=== PATIENT | female | born 1950 | race Caucasian/White ===

== ENCOUNTER 2017-02-13 09:35 | Inpatient (IN) | payer OTHER ==
[~2017-02-13] VITALS: Ht 166.4 cm; Wt 94.8 kg
[2017-02-13 09:40] VITALS: BP 140/76; PULSE 96; RESP 16; TEMP 98.8; O2SAT 96
[2017-02-13] MEDS ORDERED: SODIUM CHLOR 0.9% 1000 ML INJ 1,000 ML IV SCH (09:59)
[2017-02-13] MEDS ORDERED: SODIUM CHLORIDE 0.9% FLUSH 10 ML FLUSH IV FLUSH PRN (10:00)
[2017-02-13 10:03] LABS: GLUCOSE,URINE NEG (NEG); KETONE, URINE NEG (NEG); NITRITE,URINE NEG (NEG)
--- NOTE | 2017-02-13 10:04 | PD ---
HPI Chief Complaint: Abdominal Pain Time Seen by Provider: 09:51 Travel History International Travel<30 days: No Contact w/Intl Traveler<30days: No Traveled to known affect area: No History of Present Illness HPI The patient is a 66-year-old female who presents emergency department for 5 days of intermittent abdominal cramping and pain is located right lower aspect of the abdomen. The pain came on gradually, has progressed over the last 5 days, is worse at night, and described as sharp and cramping. The pain is now localized to the right lower quadrant. She denies any nausea, vomiting, or diarrhea. She does complain of mild constipation, last bowel movement was yesterday, described as "hard". Previous abdominal surgeries include hysterectomy and cholecystectomy. She denies any dysuria, frequency, or urgency. She does complain of chills last night, however, did not have a thermometer to check her temperature. Symptoms are moderate, there are no known alleviating or exacerbating factors. PFSH Past Medical History Narrative Medical Hypertension, diverticulitis ?: Not Past Surgical History Narrative Surgical Hysterectomy, cholecystectomy Hysterectomy: Yes Social History Tobacco Use: No Allergies-Medications (Allergen,Severity, Reaction): Coded Allergies: Sulfa (Sulfonamide Antibiotics) (Verified Allergy, Intermediate, RASH, ) Reported Meds & Prescriptions Reported Meds & Active Scripts Active Reported Tramadol (Tramadol HCl) 50 Mg Tab 50 Mg PO Q6H PRN Zolpidem (Zolpidem Tartrate) 5 Mg Tab 5 Mg PO HS PRN Gabapentin 300 Mg Cap 300 Mg PO QID Prevacid (Lansoprazole) 30 Mg Capdr 30 Mg PO DAILY Hydrochlorothiazide 25 Mg Tab 25 Mg PO DAILY Amlodipine (Amlodipine Besylate) 5 Mg Tab 5 Mg PO DAILY Lisinopril 40 Mg Tab 40 Mg PO DAILY Review of Systems Except as stated in HPI: all other systems reviewed are Neg General / Constitutional: Positive: Chills, No: Fever Cardiovascular: No: Chest Pain or Discomfort Respiratory: No: Shortness of Breath Gastrointestinal: Positive: Abdominal Pain, Constipation, No: Nausea, Vomiting , Diarrhea Genitourinary: No: Dysuria Physical Exam Narrative GENERAL: Awake, alert, pleasant 66-year-old female who appears her stated age and is in no acute respiratory distress. SKIN: Focused skin assessment warm/dry. HEAD: Atraumatic. Normocephalic. EYES: Pupils equal and round. No scleral icterus. No injection or drainage. ENT: No nasal bleeding or discharge. Mucous membranes pink and moist. NECK: Trachea midline. No JVD. CARDIOVASCULAR: Regular rate and rhythm. No murmur appreciated. RESPIRATORY: No accessory muscle use. Clear to auscultation. Breath sounds equal bilaterally. GASTROINTESTINAL: Abdomen soft, tender palpation right lower quadrant. No guarding or rigidity. Rectal: No gross blood. No fecal impaction noted on digital examination. The exam was performed in the presence of a female nurse. MUSCULOSKELETAL: No obvious deformities. No clubbing. No cyanosis. No edema. NEUROLOGICAL: Awake and alert. No obvious cranial nerve deficits. Motor grossly within normal limits. Normal speech. PSYCHIATRIC: Appropriate mood and affect; insight and judgment normal. Data Data Last Documented VS Vital Signs Date Time Temp Pulse Resp B/P (MAP) Pulse Ox O2 Delivery O2 Flow Rate FiO2 02/13/17 10:52 96 02/13/17 09:40 98.8 96 16 140/76 (97) Orders Orders Urinalysis - C+S If Indicated (02/13/17 09:43) Complete Blood Count With Diff (02/13/17 09:59) Comprehensive Metabolic Panel (02/13/17 09:59) Lipase (02/13/17 09:59) Ct Abd/Pel W/O Iv Contrast (02/13/17 09:59) Iv Access Insert/Monitor (02/13/17 09:59) Ecg Monitoring (02/13/17 09:59) Oximetry (02/13/17 09:59) Sodium Chlor 0.9% 1000 Ml Inj (Ns 1000 M (02/13/17 09:59) Sodium Chloride 0.9% Flush (Ns Flush) (02/13/17 10:00) Ampicillin-Sulbactam Inj (Unasyn Inj) (02/13/17 11:30) Admit Order (Ed Use Only) (02/13/17 11:47) Labs Laboratory Tests Test 02/13/17 09:50 02/13/17 10:47 Urine Collection Type CLEAN CATCH Urine Color YELLOW Urine Turbidity CLEAR Urine pH 8.0 Urine Specific Ferdinand 1.010 Urine Protein NEG mg/dL Urine Glucose (UA) NEG mg/dL Urine Ketones NEG mg/dL Urine Occult Blood TRACE Urine Nitrite NEG Urine Bilirubin NEG Urine Leukocyte Esterase LARGE Urine RBC 0-3 /hpf Urine WBC 3-5 /hpf Urine Squamous Epithelial Cells 0-5 /hpf Microscopic Urinalysis Comment CULT NOT INDICATED White Blood Count 7.8 TH/MM3 Red Blood Count 3.80 MIL/MM3 Hemoglobin 12.1 GM/DL Hematocrit 35.0 % Mean Corpuscular Volume 92.1 FL Mean Corpuscular Hemoglobin 31.8 PG Mean Corpuscular Hemoglobin Concent 34.5 % Red Cell Distribution Width 12.0 % Platelet Count 256 TH/MM3 Mean Platelet Volume 7.8 FL Neutrophils (%) (Auto) 74.6 % Lymphocytes (%) (Auto) 17.7 % Monocytes (%) (Auto) 6.5 % Eosinophils (%) (Auto) 0.6 % Basophils (%) (Auto) 0.6 % Neutrophils # (Auto) 5.9 TH/MM3 Lymphocytes # (Auto) 1.4 TH/MM3 Monocytes # (Auto) 0.5 TH/MM3 Eosinophils # (Auto) 0.0 TH/MM3 Basophils # (Auto) 0.0 TH/MM3 CBC Comment DIFF FINAL Differential Comment Blood Urea Nitrogen 10 MG/DL Creatinine 0.53 MG/DL Random Glucose 91 MG/DL Total Protein 6.6 GM/DL Albumin 3.2 GM/DL Calcium Level 9.2 MG/DL Alkaline Phosphatase 143 U/L Aspartate Amino Transf (AST/SGOT) 83 U/L Alanine Aminotransferase (ALT/SGPT) 161 U/L Total Bilirubin 0.7 MG/DL Sodium Level 136 MEQ/L Potassium Level 3.9 MEQ/L Chloride Level 100 MEQ/L Carbon Dioxide Level 26.6 MEQ/L Anion Gap 9 MEQ/L Estimat Glomerular Filtration Rate 115 ML/MIN Lipase 92 U/L [facility] Medical Decision Making Medical Screen Exam Complete: Yes Emergency Medical Condition: Yes Medical Record Reviewed: Yes Interpretation(s) Last Impressions Abdomen/Pelvis CT 02/13/17 0959 Signed Impressions: Service Date/Time: Monday, February 13, 2017 10:21 - CONCLUSION: 1. Induration/Inflammatory change in the right lower quadrant with increased soft tissue density within the cecum, thickening of the appendix, and small lymph nodes. This could be from an inflammatory/infectious process involving the base of the appendix and cecum. A cecal neoplasm causing secondary to inflammatory change at the base of the appendix can also be considered. The induration /inflammatory change appears more centered around the cecum than the appendix itself. Appendicitis and inflammatory change are more common than cecal neoplasms. The distinction cannot be made on this CT examination. 2. Biliary duct dilatation likely reflecting a reservoir phenomenon following cholecystectomy. The gallbladder is absent. Vidal Patel MD Laboratory Tests Test 02/13/17 09:50 02/13/17 10:47 Urine Collection Type CLEAN CATCH Urine Color YELLOW Urine Turbidity CLEAR Urine pH 8.0 Urine Specific Ferdinand 1.010 Urine Protein NEG mg/dL Urine Glucose (UA) NEG mg/dL Urine Ketones NEG mg/dL Urine Occult Blood TRACE Urine Nitrite NEG Urine Bilirubin NEG Urine Leukocyte Esterase LARGE Urine RBC 0-3 /hpf Urine WBC 3-5 /hpf Urine Squamous Epithelial Cells 0-5 /hpf Microscopic Urinalysis Comment CULT NOT INDICATED White Blood Count 7.8 TH/MM3 Red Blood Count 3.80 MIL/MM3 Hemoglobin 12.1 GM/DL Hematocrit 35.0 % Mean Corpuscular Volume 92.1 FL Mean Corpuscular Hemoglobin 31.8 PG Mean Corpuscular Hemoglobin Concent 34.5 % Red Cell Distribution Width 12.0 % Platelet Count 256 TH/MM3 Mean Platelet Volume 7.8 FL Neutrophils (%) (Auto) 74.6 % Lymphocytes (%) (Auto) 17.7 % Monocytes (%) (Auto) 6.5 % Eosinophils (%) (Auto) 0.6 % Basophils (%) (Auto) 0.6 % Neutrophils # (Auto) 5.9 TH/MM3 Lymphocytes # (Auto) 1.4 TH/MM3 Monocytes # (Auto) 0.5 TH/MM3 Eosinophils # (Auto) 0.0 TH/MM3 Basophils # (Auto) 0.0 TH/MM3 CBC Comment DIFF FINAL Differential Comment Blood Urea Nitrogen 10 MG/DL Creatinine 0.53 MG/DL Random Glucose 91 MG/DL Total Protein 6.6 GM/DL Albumin 3.2 GM/DL Calcium Level 9.2 MG/DL Alkaline Phosphatase 143 U/L Aspartate Amino Transf (AST/SGOT) 83 U/L Alanine Aminotransferase (ALT/SGPT) 161 U/L Total Bilirubin 0.7 MG/DL Sodium Level 136 MEQ/L Potassium Level 3.9 MEQ/L Chloride Level 100 MEQ/L Carbon Dioxide Level 26.6 MEQ/L Anion Gap 9 MEQ/L Estimat Glomerular Filtration Rate 115 ML/MIN Lipase 92 U/L Differential Diagnosis Differential diagnosis includes constipation, diverticulitis, appendicitis, partial small bowel obstruction, pyelonephritis, nephrolithiasis. Narrative Course IV was established, labs are drawn and sent, and the patient was placed on cardiac telemetry monitoring and continuous pulse oximetry monitoring. The patient declined pain medication initially. UA was sent to lab. Noncontrast CT of the abdomen and pelvis was ordered. The patient was placed on maintenance IV fluids. Patient's white count is unremarkable, patient is afebrile, however, CT reveals induration inflammatory changes in the right lower quadrant with increased soft tissue density within the cecum and thickening of the appendix and small left nose which could be inflammatory infectious process such as appendicitis versus cecal mass. The patient states she had an endoscopy and colonoscopy in April 2016 which was unremarkable. I had a discussion with the on-call [facility] surgeon, Dr. Faulkner, who recommends IV antibiotics and admission to medical service. We're unsure if this is a inflammatory reaction from appendicitis since she's been having pain for last 4-5 days versus possible cecal mass. Therefore, I'll call was placed to the on-call [facility] physician for admission. Physician Communication Physician Communication I had a discussion with the on-call [facility] surgeon, Dr. Faulkner, who recommends admission to medicine. Therefore, call was placed to the on-call [facility] medical team for admission at [facility]. I discussed the patient with Dr. Allan Cross who agrees with admission. Diagnosis Primary Impression: Appendicitis Qualified Codes: K37 - Unspecified appendicitis Additional Impression: Cecum mass Admitting Information Admitting Physician Requests: Observation Condition: Stable Denis Deshpande MD Feb 13, 2017 10:04
[2017-02-13 10:05] LABS: BLOOD, URINE TRACE (NEG)
[2017-02-13 10:07] LABS: METHOD OF COLLECTION CLEAN CATCH; URINE COLOR YELLOW (YELLW/STRAW)
[2017-02-13 10:08] LABS: COMMENT (UR) CULT NOT INDICATED; CULTURE IF INDICATED CULT NOT INDICATED; RBC, URINE 0-3 /hpf (0-3); SQUAMOUS EPITHELIAL CELL URINE 0-5 /hpf (0-5)
[2017-02-13] MEDS ORDERED: LISI40TA PO (10:13)
[2017-02-13] MEDS ORDERED: ZOLP5TAB3 PO (10:13)
[2017-02-13] MEDS ORDERED: HYDR25TA5 PO (10:13)
[2017-02-13] MEDS ORDERED: GABA300C5 PO (10:13)
[2017-02-13] MEDS ORDERED: AMLO5TAB2 PO (10:13)
[2017-02-13] MEDS ORDERED: TRAM50TA PO (10:13)
[2017-02-13] MEDS ORDERED: PREV30CA11 PO (10:13)
--- NOTE | 2017-02-13 10:50 | RADRPT ---
EXAM DATE/TIME: 02/13/2017 10:21 [place] COMPARISON: No previous studies available for comparison. INDICATIONS : Abdominal pain. Constipation. ORAL CONTRAST: No oral contrast ingested. RADIATION DOSE: 25.17 CTDIvol (mGy) MEDICAL HISTORY : None SURGICAL HISTORY : Hysterectomy. ENCOUNTER: Initial ACUITY: 4 - 6 days PAIN SCALE: 5/10 LOCATION: Right lower quadrant TECHNIQUE: Volumetric scanning of the abdomen and pelvis was performed. Using automated exposure control and ad justment of the mA and/or kV according to patient size, radiation dose was kept as low as reasonably achievable to obtain optimal diagnostic quality images. DICOM format image data is available electro nically for review and comparison. FINDINGS: LOWER LUNGS: There is a calcified granuloma at the anterior right lung base. LIVER: Homogeneous density without lesion. There is no dilation of the biliary tree. The gallbladder is abs ent. There is dilatation the common bile that measuring 2 cm. This likely reflects a reservoir phenom enon following cholecystectomy. SPLEEN: Normal size without lesion. PANCREAS: Within normal limits. KIDNEYS: Normal in size and shape. There is no mass, stone, or hydronephrosis. ADRENAL GLANDS: Within normal limits. VASCULAR: There is no aortic aneurysm. BOWEL/MESENTERY: There is increased density seen in the cecum. There is surrounding inflammatory change. Small lymph n odes are seen posterior to the cecum. What appears to be a thickened appendix is seen extending poste riorly from the cecum. There is a small focus of air within the appendix. The terminal ileum appears mildly thickened but this is likely from collapse and nondistention. Significant inflammatory change around the terminal ileum itself is not clearly identified. The remaining aspects of the colon appear normal. ABDOMINAL WALL: Within normal limits. RETROPERITONEUM: There is no lymphadenopathy. BLADDER: No wall thickening or mass. REPRODUCTIVE: The patient is status post hysterectomy. A pelvic mass is not seen. INGUINAL: There is no lymphadenopathy or hernia. MUSCULOSKELETAL: There is degenerative change in the lumbar spine. CONCLUSION: 1. Induration/Inflammatory change in the right lower quadrant with increased soft tissue density with in the cecum, thickening of the appendix, and small lymph nodes. This could be from an inflammatory/i nfectious process involving the base of the appendix and cecum. A cecal neoplasm causing secondary to inflammatory change at the base of the appendix can also be considered. The induration /inflammatory change appears more centered around the cecum than the appendix itself. Appendicitis and inflammator y change are more common than cecal neoplasms. The distinction cannot be made on this CT examination. 2. Biliary duct dilatation likely reflecting a reservoir phenomenon following cholecystectomy. The ga llbladder is absent. Vidal Patel MD on February 13, 2017 at 10:37 Board Certified Radiologist. This report was verified electronically.
[2017-02-13 10:52] VITALS: O2SAT 96
[2017-02-13 11:01] LABS: AUTOMATED NEUTROPHIL # 5.9 TH/MM3 (1.8-7.7); BASOPHIL % 0.6 % (0.0-2.0); EOSINOPHIL % 0.6 % (0.0-4.0); HEMO FLAGS DIFF FINAL; LYMPH % 17.7 % (9.0-44.0); LYMPHOCYTE # 1.4 TH/MM3 (1.0-4.8); MEAN CELL VOLUME 92.1 FL (80.0-100.0); MEAN CORPUSCULAR HEMOGLOBIN 31.8 PG (27.0-34.0); MEAN CORPUSCULAR HGB CONC 34.5 % (32.0-36.0); MONO % 6.5 % (0.0-8.0); NEUT % 74.6 % (16.0-70.0); PLATELET COUNT 256 TH/MM3 (150-450); WHITE BLOOD COUNT 7.8 TH/MM3 (4.0-11.0)
[2017-02-13 11:07] LABS: CHLORIDE 100 MEQ/L (98-107); POTASSIUM 3.9 MEQ/L (3.5-5.1); SODIUM (NA) 136 MEQ/L (136-145)
[2017-02-13 11:13] LABS: ANION GAP 9 MEQ/L (5-15); BICARBONATE 26.6 MEQ/L (21.0-32.0); BLOOD UREA NITROGEN 10 MG/DL (7-18)
[2017-02-13 11:15] LABS: ALT (GPT) 161 U/L (10-53); AST (GOT) 83 U/L (15-37)
[2017-02-13 11:16] LABS: GLOMERULAR FILTRATION RATE 115 ML/MIN (>89)
[2017-02-13 11:17] LABS: TOTAL BILIRUBIN ADULT 0.7 MG/DL (0.2-1.0)
[2017-02-13 11:18] LABS: ALKALINE PHOSPHATASE 143 U/L (45-117)
[2017-02-13] MEDS ORDERED: AMPICILLIN-SULBACTAM INJ 3 GM in SODIUM CHLORIDE 0.9% INJ 100 ML IV ONE (11:30)
[2017-02-13 11:56] VITALS: BP 138/71; PULSE 90; RESP 16; O2SAT 93
--- NOTE | 2017-02-13 14:27 | PD.CONS ---
HPI Service General Surgery Consult Requested By Dr. Deshpande Reason for Consult Inflammation cecum/appendix Primary Care Physician Zaida Cerrato MD History of Present Illness The patient is a 66-year-old female presenting with abdominal pain 5 days in the right lower quadrant. He's had no nausea or vomiting and has tolerated diet. She had some mild constipation. The pain was somewhat mild and she's been able to go to work, however, last night it became more severe and she also had chills. Therefore she presented to the emergency department. She does have a history of clinically diagnosed mild diverticulitis. She was noted to have fairly normal labs and a CT scan of the abdomen and pelvis revealed inflammation of the cecum and dilation of the appendix with some surrounding inflammatory changes. I reviewed the images and discussed the images with Dr. Alvares of radiology. Based on imaging, it is unclear whether this is inflammation of the cecum or appendix or cecal mass. Review of Systems Constitutional: COMPLAINS OF: Chills, DENIES: Fever Eyes: DENIES: Eye inflammation, Eye pain Respiratory: DENIES: Cough, Wheezing Cardiovascular: DENIES: Chest pain, Palpitations Gastrointestinal: COMPLAINS OF: Abdominal pain, DENIES: Nausea, Vomiting Musculoskeletal: DENIES: Muscle aches, Stiffness Integumentary: DENIES: Pruritus, Rash Neurologic: DENIES: Localized weakness, Seizures Past Family Social History Past Medical History Hypertension Diverticulitis Past Surgical History Hysterectomy Cholecystectomy Reported Medications Reported Meds & Active Scripts Active Reported Tramadol (Tramadol HCl) 50 Mg Tab 50 Mg PO Q6H PRN Zolpidem (Zolpidem Tartrate) 5 Mg Tab 5 Mg PO HS PRN Gabapentin 300 Mg Cap 300 Mg PO QID Prevacid (Lansoprazole) 30 Mg Capdr 30 Mg PO DAILY Hydrochlorothiazide 25 Mg Tab 25 Mg PO DAILY Amlodipine (Amlodipine Besylate) 5 Mg Tab 5 Mg PO DAILY Lisinopril 40 Mg Tab 40 Mg PO DAILY Allergies: Coded Allergies: Sulfa (Sulfonamide Antibiotics) (Verified Allergy, Intermediate, RASH, ) Active Ordered Medications Current Medications Medications (Trade) Dose Ordered Sig/Quintin Route Start Time Stop Time Status Last Admin Sodium Chloride 1,000 ml @ 125 mls/hr Q8H IV 02/13/17 09:59 02/13/17 17:58 02/13/17 10:49 (NS Flush) 2 ml UNSCH PRN IV FLUSH 02/13/17 10:00 Family History Noncontributory Social History No alcohol tobacco or drug use. is present with her. Physical Exam Vital Signs Vital Signs Date Time Temp Pulse Resp B/P (MAP) Pulse Ox O2 Delivery O2 Flow Rate FiO2 02/13/17 11:56 90 16 138/71 (93) 93 02/13/17 10:52 96 02/13/17 09:40 98.8 96 16 140/76 (97) 96 Physical Exam GENERAL: Awake and alert. No acute distress. Cooperative. Obese. HEAD: Normocephalic. Atraumatic. EYES: Pupils equal round and reactive to light bilaterally. No scleral icterus. ENT: Moist oral mucosa. NECK: Trachea midline. CHEST: Lungs clear to auscultation bilaterally with no wheezing or rhonchi. No respiratory distress. CARDIOVASCULAR: Regular rate and rhythm. ABDOMEN: Well-healed right upper paramedian incision and lower midline incisions. Moderate tenderness to palpation in the right lower quadrant. Otherwise soft and nontender with no distention. EXTREMITIES: No cyanosis or edema. SKIN: Warm, dry, nonjaundiced. Laboratory Laboratory Tests Test 02/13/17 09:50 02/13/17 10:47 Urine Collection Type CLEAN CATCH Urine Color YELLOW Urine Turbidity CLEAR Urine pH 8.0 Urine Specific Erwin 1.010 Urine Protein NEG Urine Glucose (UA) NEG Urine Ketones NEG Urine Occult Blood TRACE Urine Nitrite NEG Urine Bilirubin NEG Urine Leukocyte Esterase LARGE Urine RBC 0-3 Urine WBC 3-5 Urine Squamous Epithelial Cells 0-5 Microscopic Urinalysis Comment CULT NOT INDICATED White Blood Count 7.8 Red Blood Count 3.80 Hemoglobin 12.1 Hematocrit 35.0 Mean Corpuscular Volume 92.1 Mean Corpuscular Hemoglobin 31.8 Mean Corpuscular Hemoglobin Concent 34.5 Red Cell Distribution Width 12.0 Platelet Count 256 Mean Platelet Volume 7.8 Neutrophils (%) (Auto) 74.6 Lymphocytes (%) (Auto) 17.7 Monocytes (%) (Auto) 6.5 Eosinophils (%) (Auto) 0.6 Basophils (%) (Auto) 0.6 Neutrophils # (Auto) 5.9 Lymphocytes # (Auto) 1.4 Monocytes # (Auto) 0.5 Eosinophils # (Auto) 0.0 Basophils # (Auto) 0.0 CBC Comment DIFF FINAL Differential Comment Blood Urea Nitrogen 10 Creatinine 0.53 Random Glucose 91 Total Protein 6.6 Albumin 3.2 Calcium Level 9.2 Alkaline Phosphatase 143 Aspartate Amino Transf (AST/SGOT) 83 Alanine Aminotransferase (ALT/SGPT) 161 Total Bilirubin 0.7 Sodium Level 136 Potassium Level 3.9 Chloride Level 100 Carbon Dioxide Level 26.6 Anion Gap 9 Estimat Glomerular Filtration Rate 115 Lipase 92 Result Diagram: 02/13/17 1047 02/13/17 1047 Imaging Last Impressions Abdomen/Pelvis CT 02/13/17 0959 Signed Impressions: Service Date/Time: Wednesday, February 13, 2017 10:21 - CONCLUSION: 1. Induration/Inflammatory change in the right lower quadrant with increased soft tissue density within the cecum, thickening of the appendix, and small lymph nodes. This could be from an inflammatory/infectious process involving the base of the appendix and cecum. A cecal neoplasm causing secondary to inflammatory change at the base of the appendix can also be considered. The induration /inflammatory change appears more centered around the cecum than the appendix itself. Appendicitis and inflammatory change are more common than cecal neoplasms. The distinction cannot be made on this CT examination. 2. Biliary duct dilatation likely reflecting a reservoir phenomenon following cholecystectomy. The gallbladder is absent. Vidal Patel MD Assessment and Plan Assessment and Plan 66-year-old female with right lower quadrant pain and tenderness with normal white blood count and CT abdomen and pelvis concerning for cecal inflammation versus appendicitis versus cecal mass. She did have a colonoscopy by Dr. Robb in April of last year which was reportedly normal. Due to the unclear nature of this process and its prolonged duration as well as a normal white blood count I do not recommend operative intervention at this time as she may require an unnecessary right hemicolectomy. I would recommend IV antibiotics for a couple of days followed by outpatient oral antibiotics as long as she continues to improve. She would likely benefit from a colonoscopy in a few weeks and based on the results we can consider operative intervention if required or interval appendectomy. I discussed this in detail with the patient and she understands. Discussed Condition With Dr. Charlee Faulkner,David QUINTANILLA Feb 13, 2017 14:27
[2017-02-13 15:03] VITALS: BP 120/63; PULSE 92; RESP 18; TEMP 98.6
[2017-02-13 15:59] VITALS: BP 159/80; PULSE 89; RESP 16; O2SAT 95
[2017-02-13] MEDS ORDERED: NALOXONE HCL 0.4 MG/ML AMP IV PUSH PRN (16:15)
[2017-02-13] MEDS ORDERED: ONDANSETRON HCL 4 MG/2 ML VIAL IVP PRN (16:15)
[2017-02-13] MEDS ORDERED: traMADol HCL 50 MG TAB PO PRN (16:15)
[2017-02-13] MEDS: SODIUM CHLOR 0.9% 1000 ML INJ 1,000 ML IV SCH ×2 (16:15→21:13)
[2017-02-13] MEDS ORDERED: ACETAMINOPHEN 325 MG TAB PO PRN (16:15)
[2017-02-13] MEDS ORDERED: LEVOFLOXACIN 750 MG PREMIX INJ 150 ML IV SCH (17:00)
--- NOTE | 2017-02-13 17:14 | MH ---
cc: SHAHANA PANDEY M.D. DATE OF ADMISSION 02/13/2017 ADMISSION DIAGNOSIS Right lower quadrant abdominal pain, appendicitis, cecal mass. HISTORY OF PRESENT ILLNESS The patient is a very pleasant 66-year-old female who presented to the emergency room after a 5-day history of right lower quadrant pain. She states that she and her evacuated because of [place] and on the trip back while in the vehicle she started experiencing some right lower quadrant discomfort. She states this continued throughout the week, getting progressively worse until last night she was bent over in pain and also was having episodes of chills. She has no thermometer at home so was unable to take her temperature. She states throughout the week she has noticed that the pain usually intensifies worse in the evening. She has not had a change in appetite, nausea or vomiting. She has decreased her fluid intake a little bit as she thought this may make the pain worse. She did have half a turkey sandwich yesterday afternoon. She does not say that she has had a significant change in her bowel pattern. Apparently, yesterday her stools were darker and harder but she attributes any changes in her bowels to the stress of the last week. She did have a colonoscopy and endoscopy by Dr. Robb in 2016 towards the end of the year and this was normal. I was able to look at the report and it looks like there was good visualization of the appendiceal orifice and cecum at the time. She states up until this episode this week she feels that she has been in very good health and has had no other constitutional symptoms. PAST MEDICAL HISTORY Significant for hypertension, restless legs syndrome. She does have significant osteoarthritis of her knees and some insomnia. PAST SURGICAL HISTORY Includes cholecystectomy, hysterectomy, carpal tunnel surgery. She also says that she had a tubaloplasty. Apparently, at one point she had what she states was an infected mass in her uterus which is what led to the hysterectomy and she was told she had a significant amount of adhesions in that area. ALLERGIES ALLERGIES TO SULFA. MEDICATIONS Current medications at home include: 1. Lisinopril 40 milligrams daily. 2. Amlodipine 5 milligrams daily. 3. Ambien 5 milligrams at bedtime. 4. She takes tramadol 50 milligrams. She can take it up to every 6 hours but she takes it less. She takes that for her restless legs. 5. Gabapentin. HABITS She does not smoke. She denies any recent alcohol consumption habits. She is currently . 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 REVIEW OF SYSTEMS No weight loss or gain. No fever. As stated, the chills. No cough. No shortness of breath. No chest pain. As stated, the abdominal pain. No change in urination. No lower extremity swelling. She does have the restless legs for which she takes the tramadol as well. PHYSICAL EXAMINATION VITAL SIGNS: Temperature is 98.6, pulse is 92, respirations 18, blood pressure is 120/63, pulse ox is 93% on room air. GENERAL: She is lying flat in the ER cot. She looks a little bit nervous but is pleasant and cooperative. HEENT: Normocephalic, atraumatic. EOM is intact. She has dry oral mucosa. NECK: Her neck is supple. LUNGS: Lungs are clear to auscultation bilaterally. She has no wheezing. HEART: Her heart is a little bit tachycardiac. SKIN: Her skin does feel warm to touch even though she is afebrile. ABDOMEN: Bowel sounds are present. She does have a healed midline incisions from prior surgeries. She does have right lower quadrant tenderness to palpation. No significant rebound or guarding. EXTREMITIES: Show no clubbing, cyanosis or edema. LABORATORY DATA Lab work that was done showed a white count of 7.8, hemoglobin of 12.1, hematocrit of 35, platelet count was 256, neutrophils was 74.6. Sodium was 136, potassium 3.9, BUN 10, creatinine 0.53, AST was 83 with an ALT of 161 and alk phos of 143, albumin was 3.2 with a lipase of 92. UA showed trace occult blood and large leukocyte esterase but culture was not indicated. IMAGING STUDIES CT scan showed surgically absent gallbladder with some dilatation of the common bile duct to 2 cm felt to reflect a reservoir phenomenon. There was increased density in the cecum with surrounding inflammatory change. There was some small lymph nodes seen and what appeared to be a thickened appendix extending posteriorly from the cecum with a small focus of air. The terminal ileum appears to be mildly thickened but this is likely from collapse ___. The conclusion, felt that they could be an inflammatory infectious process involving the base of the appendix and cecum. Cecal neoplasm needed to be considered. They felt that distinction could not be made on the CT and biliary duct distension. ASSESSMENT/PLAN A 66-year-old female presenting with right lower quadrant pain with what appears to be a possible appendicitis versus cecal neoplasm on CT scan. At this point general surgery has seen and evaluated the patient and has recommended conservative management initially with antibiotics. As he did not feel that she needed to go to the OR in an emergent manner. Hopefully, she responds to the IV antibiotics, will be able to transition her to p.o. and follow up with possibly an outpatient colonoscopy, will depend on her clinical response to the IV medication. At this time she has been admitted. She has been given a dose of unison in the ER but I am going to go ahead, she has some elevation of liver enzymes, so I am going to go ahead and change her over to Levaquin and metronidazole which was also recommended by Dr. Faulkner. She is ambulatory so we will just use some TODD hose for DVT prophylaxis. In terms of her hypertension, her blood pressure is well-controlled. She is actually a little bit tachycardiac. She will go ahead and feed with clear liquids and progress her diet depending how she is doing. Maintain on IV fluids. Her pain seems relatively well-controlled now. She seems to have had reaction to morphine when I speak to her, even though she did not answer that or ___ when I spoke to her. So will go ahead and use her doses of tramadol at home to see if she should have any discomfort. Go ahead and repeat her liver enzymes tomorrow to monitor whether or not they are well maintained, continue persistently elevated or continue to elevate. I reviewed her lab work from [facility] from her EHR records and looks like this is new for her. She did have a cholecystectomy and there is some ductal dilatation on the CT scan. Further recommendations as the case develops. MD RADHA Douglas/ARIANA /4:21 PM /4:42 PM
[2017-02-13] MEDS: GABAPENTIN 300 MG CAP PO SCH ×2 (18:00→21:12)
[2017-02-13] MEDS: metroNIDAZOLE 500 MG INJ 100 ML IV SCH (21:12)
[2017-02-13 21:25] VITALS: BP 152/77; PULSE 84; RESP 18; TEMP 97.5; O2SAT 99
[2017-02-13] MEDS: ZOLPIDEM TARTRATE 5 MG TAB PO PRN (23:37)
[2017-02-14 01:12] VITALS: BP 109/56; PULSE 82; RESP 16; TEMP 98; O2SAT 100
[2017-02-14] MEDS: metroNIDAZOLE 500 MG INJ 100 ML IV SCH ×2 (01:24→09:01)
[2017-02-14 07:30] LABS: CHLORIDE 104 MEQ/L (98-107); POTASSIUM 3.9 MEQ/L (3.5-5.1); SODIUM (NA) 139 MEQ/L (136-145)
[2017-02-14 07:32] LABS: AUTOMATED NEUTROPHIL # 5.2 TH/MM3 (1.8-7.7); BASOPHIL % 0.3 % (0.0-2.0); EOSINOPHIL # 0.1 TH/MM3 (0-0.4); EOSINOPHIL % 1.3 % (0.0-4.0); HEMATOCRIT 34.5 % (35.0-46.0); HEMO FLAGS DIFF FINAL; LYMPH % 18.9 % (9.0-44.0); LYMPHOCYTE # 1.4 TH/MM3 (1.0-4.8); MEAN CELL VOLUME 93.2 FL (80.0-100.0); MEAN CORPUSCULAR HEMOGLOBIN 31.7 PG (27.0-34.0); MONO % 7.1 % (0.0-8.0); NEUT % 72.4 % (16.0-70.0); PLATELET COUNT 215 TH/MM3 (150-450); RED CELL DISTRIBUTION WIDTH 12.4 % (11.6-17.2); WHITE BLOOD COUNT 7.2 TH/MM3 (4.0-11.0)
[2017-02-14 07:35] LABS: ANION GAP 8 MEQ/L (5-15); BICARBONATE 27.3 MEQ/L (21.0-32.0); BLOOD UREA NITROGEN 7 MG/DL (7-18)
[2017-02-14 07:38] LABS: ALT (GPT) 112 U/L (10-53); AST (GOT) 38 U/L (15-37); GLOMERULAR FILTRATION RATE 142 ML/MIN (>89)
[2017-02-14 07:40] LABS: TOTAL BILIRUBIN ADULT 0.6 MG/DL (0.2-1.0)
[2017-02-14 07:41] LABS: ALKALINE PHOSPHATASE 130 U/L (45-117)
[2017-02-14 08:00] VITALS: BP 143/73; PULSE 80; RESP 17; TEMP 97.7; O2SAT 95
[2017-02-14] MEDS: SODIUM CHLOR 0.9% 1000 ML INJ 1,000 ML IV SCH ×4 (08:15→20:37)
[2017-02-14] MEDS: PANTOPRAZOLE SOD 40 MG DELAYED RELEASE TAB PO SCH (09:00)
[2017-02-14] MEDS: GABAPENTIN 300 MG CAP PO SCH ×4 (09:00→20:34)
[2017-02-14] MEDS: amLODIPine BESYLATE 5 MG TAB PO SCH (09:01)
[2017-02-14] MEDS: LISINOPRIL 20 MG TAB PO SCH (09:01)
[2017-02-14] MEDS ORDERED: INFLUENZA VIRUS VACCINE (QUADRIVALENT) 0.5 ML SYR IM ONE (10:00)
[2017-02-14 12:00] VITALS: BP 136/79; PULSE 85; RESP 18; TEMP 97.5; O2SAT 96
--- NOTE | 2017-02-14 12:09 | HHI.PR ---
Subjective Subjective Notes No complaints today; pain is better. Denies N/V. Objective Vitals/I&O Vital Signs Date Time Temp Pulse Resp B/P (MAP) Pulse Ox O2 Delivery O2 Flow Rate FiO2 02/14/17 08:00 97.7 80 17 143/73 (96) 95 02/13/17 15:03 Room Air Labs Laboratory Tests Test 02/14/17 06:24 White Blood Count 7.2 Red Blood Count 3.70 Hemoglobin 11.7 Hematocrit 34.5 Mean Corpuscular Volume 93.2 Mean Corpuscular Hemoglobin 31.7 Mean Corpuscular Hemoglobin Concent 34.0 Red Cell Distribution Width 12.4 Platelet Count 215 Mean Platelet Volume 7.9 Neutrophils (%) (Auto) 72.4 Lymphocytes (%) (Auto) 18.9 Monocytes (%) (Auto) 7.1 Eosinophils (%) (Auto) 1.3 Basophils (%) (Auto) 0.3 Neutrophils # (Auto) 5.2 Lymphocytes # (Auto) 1.4 Monocytes # (Auto) 0.5 Eosinophils # (Auto) 0.1 Basophils # (Auto) 0.0 CBC Comment DIFF FINAL Differential Comment Blood Urea Nitrogen 7 Creatinine 0.44 Random Glucose 81 Total Protein 6.2 Albumin 3.0 Calcium Level 8.7 Alkaline Phosphatase 130 Aspartate Amino Transf (AST/SGOT) 38 Alanine Aminotransferase (ALT/SGPT) 112 Total Bilirubin 0.6 Sodium Level 139 Potassium Level 3.9 Chloride Level 104 Carbon Dioxide Level 27.3 Anion Gap 8 Estimat Glomerular Filtration Rate 142 Radiology Last Impressions Abdomen/Pelvis CT 02/13/17 0959 Signed Impressions: Service Date/Time: Monday, February 13, 2017 10:21 - CONCLUSION: 1. Induration/Inflammatory change in the right lower quadrant with increased soft tissue density within the cecum, thickening of the appendix, and small lymph nodes. This could be from an inflammatory/infectious process involving the base of the appendix and cecum. A cecal neoplasm causing secondary to inflammatory change at the base of the appendix can also be considered. The induration /inflammatory change appears more centered around the cecum than the appendix itself. Appendicitis and inflammatory change are more common than cecal neoplasms. The distinction cannot be made on this CT examination. 2. Biliary duct dilatation likely reflecting a reservoir phenomenon following cholecystectomy. The gallbladder is absent. Vidal Patel MD Cardiovascular: Regular Lungs: Clear Abdomen: Non-distended, Other Extremities: No edema Narrative Exam Minimal RLQ tenderness. No guarding or rebound. A/P Assessment and Plan Inflammatory process RLQ; no evidence of acute surgical process. Agree with change to PO antibiotics; probable d/c tomorrow. Will place on regular diet. Jordan Jay MD Feb 14, 2017 12:09
--- NOTE | 2017-02-14 12:25 | HHI.PR ---
Subjective Remarks Feeling much better this am, no longer having the sharp pains. Tolerating clear liquids. ambulating the castro. Objective Vitals Vital Signs Date Time Temp Pulse Resp B/P (MAP) Pulse Ox O2 Delivery O2 Flow Rate FiO2 02/14/17 08:00 97.7 80 17 143/73 (96) 95 02/14/17 05:05 02/14/17 01:12 98.0 82 16 109/56 (73) 100 02/13/17 21:25 97.5 84 18 152/77 (102) 99 02/13/17 18:28 02/13/17 15:59 89 16 159/80 (106) 95 02/13/17 15:03 98.6 92 18 120/63 (82) Room Air Result Diagram: 02/14/1762302/14/17623 Imaging Last Impressions Abdomen/Pelvis CT 02/13/17 0959 Signed Impressions: Service Date/Time: Wednesday, February 13, 2017 10:21 - CONCLUSION: 1. Induration/Inflammatory change in the right lower quadrant with increased soft tissue density within the cecum, thickening of the appendix, and small lymph nodes. This could be from an inflammatory/infectious process involving the base of the appendix and cecum. A cecal neoplasm causing secondary to inflammatory change at the base of the appendix can also be considered. The induration /inflammatory change appears more centered around the cecum than the appendix itself. Appendicitis and inflammatory change are more common than cecal neoplasms. The distinction cannot be made on this CT examination. 2. Biliary duct dilatation likely reflecting a reservoir phenomenon following cholecystectomy. The gallbladder is absent. Vidal Patel MD Objective Remarks Lying in bed, looks comfortable. Lungs cta heart rrr not tachy good bs, tenderness in rlq less on exam no c/c/e A/P Problem List: (1) Appendicitis ICD Codes: K37 - Unspecified appendicitis Status: Acute Plan: clinically responding to antibiotics will change to po today (2) Cecum mass ICD Codes: K63.9 - Disease of intestine, unspecified Status: Acute Plan: Will need follow up eval with ct scan once antibiotic course has been completed (3) HTN (hypertension) ICD Codes: I10 - Essential (primary) hypertension Plan: cont amlodipine, lisinopril Assessment and Plan if tolerates diet and po meds plan to d/c later today or tommorrow am Problem Qualifiers (1) Appendicitis: Qualified Codes: K37 - Unspecified appendicitis (2) HTN (hypertension): Qualified Codes: I10 - Essential (primary) hypertension Sole Ulrich MD Feb 14, 2017 12:25
[2017-02-14] MEDS: metroNIDAZOLE 500 MG TAB PO SCH ×2 (14:46→20:35)
[2017-02-14 16:00] VITALS: BP 130/81; PULSE 76; RESP 17; TEMP 97.7; O2SAT 95
[2017-02-14] MEDS ORDERED: LEVOFLOXACIN 750 MG TAB PO SCH (18:00)
[2017-02-14 20:00] VITALS: BP 145/77; PULSE 90; RESP 20; TEMP 97.7; O2SAT 99
[2017-02-14] MEDS: ZOLPIDEM TARTRATE 5 MG TAB PO PRN (23:06)
[2017-02-15] VITALS: BP 129/72; PULSE 77; RESP 20; TEMP 98.4; O2SAT 99
[2017-02-15] MEDS: metroNIDAZOLE 500 MG TAB PO SCH (05:41)
[2017-02-15 08:00] VITALS: BP 136/77; PULSE 63; RESP 16; TEMP 97.8; O2SAT 96
--- NOTE | 2017-02-15 08:42 | HHI.PR ---
Subjective Subjective Notes Pain is continuing to improve. She is eating regular diet. Objective Vitals/I&O Vital Signs Date Time Temp Pulse Resp B/P (MAP) Pulse Ox O2 Delivery O2 Flow Rate FiO2 02/15/17 00:00 98.4 77 20 129/72 (91) 99 02/13/17 15:03 Room Air Radiology Last Impressions Abdomen/Pelvis CT 02/13/17 0959 Signed Impressions: Service Date/Time: Monday, February 13, 2017 10:21 - CONCLUSION: 1. Induration/Inflammatory change in the right lower quadrant with increased soft tissue density within the cecum, thickening of the appendix, and small lymph nodes. This could be from an inflammatory/infectious process involving the base of the appendix and cecum. A cecal neoplasm causing secondary to inflammatory change at the base of the appendix can also be considered. The induration /inflammatory change appears more centered around the cecum than the appendix itself. Appendicitis and inflammatory change are more common than cecal neoplasms. The distinction cannot be made on this CT examination. 2. Biliary duct dilatation likely reflecting a reservoir phenomenon following cholecystectomy. The gallbladder is absent. Vidal Patel MD Narrative Exam NAD Abd: soft, mild RLQ ttp A/P Assessment and Plan 66 yo F with RLQ inflammatory process. Improving. Clear for dc home today from my standpoint. Recommend Levaquin/flagyl for one week. F/u with me in two weeks. I will likely repeat CT a/p and consider GI referral for colonoscopy at that time. David Faulkner MD Feb 15, 2017 08:42
[2017-02-15] MEDS: PANTOPRAZOLE SOD 40 MG DELAYED RELEASE TAB PO SCH (08:44)
[2017-02-15] MEDS: GABAPENTIN 300 MG CAP PO SCH (08:45)
[2017-02-15] MEDS: LISINOPRIL 20 MG TAB PO SCH (08:45)
[2017-02-15] MEDS: amLODIPine BESYLATE 5 MG TAB PO SCH (08:45)
[2017-02-15 10:01] LABS: ALT (GPT) 81 U/L (10-53); AST (GOT) 21 U/L (15-37)
[2017-02-15 10:02] LABS: GLOMERULAR FILTRATION RATE 82 ML/MIN (>89)
[2017-02-15 10:03] LABS: ANION GAP 8 MEQ/L (5-15); CHLORIDE 100 MEQ/L (98-107); POTASSIUM 3.8 MEQ/L (3.5-5.1); SODIUM (NA) 136 MEQ/L (136-145)
[2017-02-15 10:04] LABS: ALKALINE PHOSPHATASE 137 U/L (45-117)
[2017-02-15 10:07] LABS: BLOOD UREA NITROGEN 7 MG/DL (7-18)
[2017-02-15 10:16] LABS: TOTAL BILIRUBIN ADULT 0.3 MG/DL (0.2-1.0)
--- NOTE | 2017-02-15 11:24 | HHI.PR ---
Subjective Remarks tolerating food, just small amount of pain, tolerating metronidazole Objective Vitals Vital Signs Date Time Temp Pulse Resp B/P (MAP) Pulse Ox O2 Delivery O2 Flow Rate FiO2 02/15/17 08:00 97.8 63 16 136/77 (96) 96 02/15/17 00:00 98.4 77 20 129/72 (91) 99 02/14/17 20:00 97.7 90 20 145/77 (99) 99 02/14/17 16:00 97.7 76 17 130/81 (97) 95 02/14/17 12:00 97.5 85 18 136/79 (98) 96 Result Diagram: 02/14/17 0624 02/15/17 0925 Imaging Last Impressions Abdomen/Pelvis CT 02/13/17 0959 Signed Impressions: Service Date/Time: Wednesday, February 13, 2017 10:21 - CONCLUSION: 1. Induration/Inflammatory change in the right lower quadrant with increased soft tissue density within the cecum, thickening of the appendix, and small lymph nodes. This could be from an inflammatory/infectious process involving the base of the appendix and cecum. A cecal neoplasm causing secondary to inflammatory change at the base of the appendix can also be considered. The induration /inflammatory change appears more centered around the cecum than the appendix itself. Appendicitis and inflammatory change are more common than cecal neoplasms. The distinction cannot be made on this CT examination. 2. Biliary duct dilatation likely reflecting a reservoir phenomenon following cholecystectomy. The gallbladder is absent. Vidal Patel MD Objective Remarks Lying in bed, looks comfortable. Lungs cta heart rrr not tachy good bs, minimal tenderness in rlq no c/c/e A/P Problem List: (1) Appendicitis ICD Codes: K37 - Unspecified appendicitis Status: Acute Plan: clinically responding to antibiotics tolerated po (2) Cecum mass ICD Codes: K63.9 - Disease of intestine, unspecified Status: Acute Plan: Will need follow up eval with ct scan once antibiotic course has been completed (3) HTN (hypertension) ICD Codes: I10 - Essential (primary) hypertension Plan: cont amlodipine, lisinopril Assessment and Plan Discharge home today with oral antibiotics for 10 days f/u with general surgery in 2 weeks Problem Qualifiers (1) Appendicitis: Qualified Codes: K37 - Unspecified appendicitis (2) HTN (hypertension): Qualified Codes: I10 - Essential (primary) hypertension Sole Ulrich MD Feb 15, 2017 11:24
[2017-02-15] MEDS ORDERED: METR-1 PO (11:32)
[2017-02-15] MEDS ORDERED: LEVA750T9 PO (11:32)
== END 2017-02-15 12:38 | disposition home or self-care (01) | DRG 394 ==
LOC: PHED 09:35 → PHEDA 11:49 → OBSVTOIN 16:11 → PH3B 18:21
PROVIDERS: ADMIT Legal Medicine; ATTEND Legal Medicine
DX: K37 Unspecified appendicitis (principal); K57.92 Diverticulitis of intestine, part unspecified, without perforation or abscess without bleeding; I10 Essential (primary) hypertension; K59.00 Constipation, unspecified; G25.81 Restless legs syndrome; M17.9 Osteoarthritis of knee, unspecified; G47.00 Insomnia, unspecified; Z90.710 Acquired absence of both cervix and uterus
CPT/HCPCS: 74176; 80053; 81001; 83690; 85025; 96360; J0295; J1956; J7030